=== PATIENT | male | born 1990 | race Two or more races ===

== ENCOUNTER 2024-06-27 00:39 | Emergency (ER) | payer MEDICAID, OTHER ==
[~2024-06-27] VITALS: Ht 170.2 cm; Wt 63.6 kg
[2024-06-27 01:14] VITALS: BP 139/98; PULSE 70; RESP 16; TEMP 98.1; O2SAT 97
[2024-06-27] MEDS: LACTULOSE 20Gm/30ML SOLN PO ONE ×2 (03:09)
[2024-06-27] MEDS: ACETAMINOPHEN 325 MG TAB PO ONE ×2 (03:09)
== END 2024-06-27 04:43 | disposition home or self-care (01) ==
LOC: ER 00:39 → EDBD 00:39 → ER 04:43
DX: F19.10 Other psychoactive substance abuse, uncomplicated (principal); F17.210 Nicotine dependence, cigarettes, uncomplicated; Z59.00 Homelessness unspecified
CPT/HCPCS: 74018; 93005

== ENCOUNTER 2024-06-28 00:43 | Emergency (ER) | payer MEDICAID ==
[~2024-06-28] VITALS: Ht 170.2 cm; Wt 59.1 kg
[2024-06-28 01:12] LABS: Basophils # (auto) 0 10 ^3/uL (0-0.2); Basophils % (auto) 0.5 % (0.0-2.0); Eosinophils # (auto) 0.4 10 ^3/uL (0-0.8); Hematocrit 43.5 % (41.0-53.0); Hemoglobin 15.1 g/dL (13.5-17.5); Lymphocytes # (auto) 1.4 10 ^3/uL (0.4-5.4); Lymphocytes % (auto) 15.8 % (10.0-50.0); Mean Corpuscular Hemoglobin 31.7 pg (28.0-32.0); Mean Corpuscular Hgb Conc. 34.7 g/dL (32.0-36.0); Mean Corpuscular Volume 91.3 fL (80.0-100.0); Monocytes # (auto) 0.7 10 ^3/uL (0-1.3); Monocytes % (auto) 7.6 % (0.0-12.0); Neutrophils # (auto) 6.6 10 ^3/uL (1.6-8.6); Neutrophils % (auto) 72.1 % (37.0-80.0); Platelet Count (auto) 235 10^3/uL (140-450); Red Blood Cells 4.76 10^6/uL (4.5-5.90); Red Cell Distribution Width 13.7 % (11.8-14.3); White Blood Cell 9.1 10^3/uL (4.4-10.8)
[2024-06-28 01:22] LABS: Chloride 107 mmol/L (98-107); Potassium 3.4 mmol/L (3.5-5.1); Sodium 141 mmol/L (136-145)
[2024-06-28 01:23] LABS: Anion Gap 5 (5-15); Calcium 9.8 mg/dL (8.7-10.4); Carbon Dioxide 29 mmol/L (20-31)
[2024-06-28 01:28] LABS: BUN/Creatinine Ratio 14.3 (10.0-20.0); Blood Alcohol < 3.0 mg/dL (<10); Blood Urea Nitrogen 13 mg/dL (9-23); Glucose 114 mg/dL (74-106)
[2024-06-28 01:41] LABS: Salicylate < 3.0 mg/dL (-30)
[2024-06-28 04:05] LABS: Urine Bacteria None Seen /hpf (None Seen)
[2024-06-28 04:23] LABS: Urine Blood Negative /uL (Negative); Urine Clarity Clear (Clear); Urine Color Yellow (Yellow); Urine Hyaline Cast FEW /lpf (0 - 2); Urine Mucus FEW (None Seen); Urine Protein, UAD 1+ (Negative); Urine Specific Gravity 1.029 (1.001-1.035); Urine Urobilinogen Normal (Negative); Urine WBC 4 /hpf (0 - 3)
[2024-06-28 04:28] LABS: Amphetamine Screen, Urine Neg (NEGATIVE); Barbiturate Scree,Urine Neg (NEGATIVE); Benzodiazephine Screen, Urine Neg (NEGATIVE); Cocaine Screen, Urine Pos (NEGATIVE); Opiate Scree,Urine Pos (NEGATIVE); Phencyclidine Screen, Urine Neg (NEGATIVE)
[2024-06-28 04:29] LABS: Cannabinoid Screen, Urine Pos (NEGATIVE)
[2024-06-28 07:52] VITALS: BP 133/86; PULSE 92; RESP 16; TEMP 98.7; O2SAT 97
== END 2024-06-28 11:35 | disposition home or self-care (01) ==
LOC: ER 00:43
DX: F14.90 Cocaine use, unspecified, uncomplicated (principal); F41.9 Anxiety disorder, unspecified; F17.210 Nicotine dependence, cigarettes, uncomplicated; Z59.00 Homelessness unspecified; Z79.899 Other long term (current) drug therapy
CPT/HCPCS: 36415; 80048; 80307; 80320; 80329; 81001; 85025